=== PATIENT | male | born 1975 | race African-American/Black ===

== ENCOUNTER 2016-08-27 00:02 | Emergency (ER) | payer MEDICARE | END 2016-08-27 01:33 | disposition home or self-care (01) | LOC: D.ER 00:02 | DX: M79.1 Myalgia (principal); V89.2XXA Person injured in unspecified motor-vehicle accident, traffic, initial encounter; Y93.89 Activity, other specified; Y92.410 Unspecified street and highway as the place of occurrence of the external cause ==